=== PATIENT | male | born 1955 | race Caucasian/White ===

== ENCOUNTER 2016-09-21 06:33 | Emergency (ER) | payer OTHER ==
[~2016-09-21] VITALS: Ht 172.7 cm; Wt 104.5 kg
[2016-09-21 06:36] VITALS: BP 155/94; PULSE 64; RESP 16; O2SAT 99
[2016-09-21] MEDS ORDERED: 0.9% Sodium Chloride 1,000 ML IV ONE (06:42)
--- NOTE | 2016-09-21 06:44 | ED.REPORT ---
HPI-Back Pain 40 and Over Date of Service September 21, 2016 ED Provider: Hugo David MD The patient is a 61 year old male who presents to the ED due to severe back pain onset this morning. He woke up this morning with some diarrhea. Later on, he went to work and began to develop severe back pain, nausea and diaphoresis. He denies dysuria and vomiting. When he sits up straight the pain is the worst. Nursing Notes Stated Complaint: BACK PAIN Chief Complaint: Back Pain or Injury Nursing Notes Reviewed: Yes Allergies: Coded Allergies: No Known Allergies (Unverified , 09/21/16) Scheduled Tamsulosin (Flomax) 0.4 Mg Capsule 0.4 MG PO DAILY Scheduled PRN Hydrocodone-Acetaminophen 5-325 mg (Hydrocodone-Acetaminophen 5-325 mg) 1 Each Tablet 1 TABLET PO Q4H PRN PRN For Pain General Time Seen by MD: 06:42 Chief Complaint Back pain Hx Obtained From: Patient Arrived By: Walk-in Sudden in Onset?: Yes Onset Occurred: 1 - 4 hours ago Symptom Duration: Since onset Caused by: Spontaneous/no mechanism Location: : Flank bilateral Quality: Painful Radiation: : Does not radiate Severity: Current: Mild Severity: Maximum: Moderate Recent Healthcare: No recent doctor visit, No recent hospitalization Similar Sx Previous: No Past Medical History Past Medical History denies Past Surgical History denies Smoking History Unknown if Ever Smoker Social History Other Social History: Local resident Ambulatory Status Independent Review of Systems Cardiovascular: Denies: Chest pain GI: Reports: Diarrhea, Nausea, Denies: Vomiting Male: Reports Flank pain, Denies Dysuria Musculoskeletal: Reports: Back pain Complete sys rev & neg: except as marked. Skin: Reports Diaphoresis Physical Exam Initial Vital Signs Vital Signs (First) Date Time Temp Pulse Resp B/P Pulse Ox O2 Delivery O2 Flow Rate FiO2 09/21/16 06:36 36.1 64 16 155/94 99 Room Air Initial VS: Reviewed Head / Eyes: Atraumatic, Normocephalic, PERRL ENT: Mucous membranes moist Extremities: Vascular intact, Neuro intact, No swelling Skin: Warm, Dry General/Constitutional: Awake, Alert, Cooperative, Not toxic appearing Respiratory / Chest: Atraumatic, Breath sounds NL, Breath sounds = bilat, No respiratory distress Cardiovascular: Heart rate NL, Regular rhythm, Heart sounds NL Abdomen: Atraumatic, Soft, Non-tender Flank / Spine / Paraspinal: Positive: Flank tender L Neurologic: Oriented X3, Speech NL, No motor deficits Interpretation & Diagnostics Interpretation & Diagnostics: CT KUB IMPRESSION: 1. 1 mm stone in the distal left ureter causing minimal to mild left-sided hydronephrosis. 2. 2 mm nonobstructing right renal stone. 3. Bilateral inguinal hernias. Dictated by: Soraya Aguirre MD, PhD on 09/21/2016 at 7:53 Approved by: Soraya Aguirre MD, PhD on 09/21/2016 at 7:59 Lab Results Interpretation Result Diagram: 09/21/16 0710 09/21/16 0710 Test 09/21/16 07:02 09/21/16 07:10 Urine Color Yellow (YELLOW) Urine Appearance Clear (CLEAR,HAZY) Urine pH 5.0 (5.0-8.0) Urine Specific Leroy 1.025 (1.003-1.035) Urine Protein Negativemg/dL (NEG,TRACE) Urine Glucose (UA) Negativemg/dL (NEGATIVE) Urine Ketones Negativemg/dL (NEGATIVE) Urine Occult Blood Small (NEGATIVE) Urine Nitrite Negative (NEGATIVE) Urine Bilirubin Negative (NEGATIVE) Urine Urobilinogen Normalmg/dL (NORMAL) Urine Leukocyte Esterase Negative (NEGATIVE) Urine RBC 3-10/hpf (0-2) Urine WBC 0-5/hpf (0-5) Urine Epithelial Cells Few/hpf (NONE-MOD) Urine Crystals None seen (NONE SEEN) Urine Bacteria Few/hpf (NONE-FEW) Urine Hyaline Casts None/lpf (NONE) Urine Granular Casts None seen (NONE SEEN) Urine Waxy Casts None seen (NONE SEEN) Urine Red Blood Cell Casts None seen (NONE SEEN) Urine White Blood Cell Casts None seen (NONE SEEN) Urine Mucus Present (None Seen) Urine Trichomonas None seen (NONE SEEN) Urine Yeast None (NONE SEEN) Urinalysis Comment None Urine Culture Reflexed Not indicated White Blood Count 6.8th/mm3 (3.8-10.1) Red Blood Count 5.75mil/mm3 (4.40-5.80) Hemoglobin 16.1g/dL (13.8-17.2) Hematocrit 45.7% (41.0-50.0) Mean Corpuscular Volume 79.5fL (81-100) Mean Corpuscular Hemoglobin 28.0pg (27.0-35.0) Mean Corpuscular Hemoglobin Concent 35.2% (32.0-37.0) Red Cell Distribution Width 14.6% (12.3-15.4) Platelet Count 231bil/L (150-400) Neutrophils (%) (Auto) 46.3% (40-74) Lymphocytes (%) (Auto) 36.9% (14-46) Monocytes (%) (Auto) 12.3% (4-12) Eosinophils (%) (Auto) 3.5% (0-5) Basophils (%) (Auto) 0.7% (0-3) Sodium Level 137mEq/L (134-144) Potassium Level 4.3mEq/L (3.5-5.2) Chloride Level 98mEq/L (97-108) Carbon Dioxide Level 26mmol/L (18-29) Blood Urea Nitrogen 16mg/dL (8-27) Creatinine 1.19mg/dL (0.76-1.27) Estimat Glomerular Filtration Rate 66mL/min (>59) Glucose Level 164mg/dL (60-99) Calcium Level 9.3mg/dL (8.5-10.1) Magnesium Level 2.1mg/dL (1.6-2.6) Total Bilirubin 0.7mg/dL (0.0-1.2) Aspartate Amino Transf (AST/SGOT) 28U/L (0-50) Alanine Aminotransferase (ALT/SGPT) 40U/L (0-44) Alkaline Phosphatase 86U/L (25-160) Total Protein 7.6g/dL (6.4-8.4) Albumin 4.2g/dL (3.4-5.0) Lipase 42U/L (13-60) Lab Results Interpretation: Urine shows blood but no leukocytes Re-Eval/Medical Decision Med Decision/Clinical Course 61-year-old male presenting with left flank pain. CT with 1 mm kidney stone minimal hydronephrosis. Pain controlled. No evidence of infection on urine. Patient was discharged on with plans to strain his urine, Flomax, follow-up with primary doctor in urology. Return precautions given her worsening pain, fevers, vomiting, abdominal pain, any other worsening symptoms. Re-Evaluation/Progress : Time of Eval: 08:27 Re-Evaluation/Progress Note: Pt rechecked. Informed of diagnosis of kidney stone. It is 1mm and should pass on its own. Discussed plan of treatment. Pt understands and agrees with plan. F/U and RTER warnings given. All questions addressed. Counseled Regarding: Diagnosis, Lab results, Need for follow-up, When/why to return to ED Discharge & Departure Impression: Primary Impression: Kidney stones Disposition: Home Discharge Condition All VS Reviewed: Yes Condition: Stable Patient Instructions: Kidney Stones (ED) Additional Instructions: You have a kidney stone, but there are no signs of infection. I am sending you home with a prescription for Flomax, take as directed. Strain your urine. Follow up with your primary care physician as needed. Here is the number for a urologist for further evaluation: Dr. Soraya Brown [phone] Return to the Emergency Department for any new or worsening symptoms including back pain, nausea, and vomiting. I hope you feel better soon! Referrals: [facility] Lamine Attestation Portion of this note were transcribed by Lizette Kam. I, Dr. David, personally performed the history, physical exam, and medical decision-making: I reviewed and confirmed the accuracy for the information in the transcribed note. Signed by: lamine Rivera, 09/21/16 0800 copies to: [facility] Hugo David MD September 21, 2016 06:44 Lizette Kam September 21, 2016 06:52
[2016-09-21] MEDS ORDERED: Ondansetron 2 mg/mL 2 mL Inj IVPUSH PRN (06:45)
[2016-09-21 07:22] LABS: BASOPHILS % (AUTO) 0.7 % (0-3); EOSINOPHILS % (AUTO) 3.5 % (0-5); MONOCYTES % (AUTO) 12.3 % (4-12); Mean Corpuscular Volume 79.5 fL (81-100); NEUTROPHILS % (AUTO) 46.3 % (40-74); Platelet Count 231 bil/L (150-400)
[2016-09-21 07:40] LABS: APPEARANCE,URINE CLEAR (CLEAR,HAZY); COLOR,URINE YELLOW (YELLOW); OCCULT BLOOD,URINE SMALL (NEGATIVE); UROBILINOGEN,URINE NORMAL (NORMAL)
[2016-09-21 07:41] VITALS: BP 135/87; PULSE 60; RESP 20; O2SAT 97
[2016-09-21] MEDS ORDERED: TAMS0.4C98 PO (07:54)
[2016-09-21 07:56] LABS: Magnesium 2.1 mg/dL (1.6-2.6)
--- NOTE | 2016-09-21 08:01 | DRSVH ---
PROCEDURE: CT KUB ([id number]) INDICATIONS: L flank pain hematuria TECHNIQUE: Noncontrast 5 mm thick sections acquired from the diaphragms to the symphysis. 5 mm thick coronal an d sagittal reformats were then performed. For radiation dose reduction, the following was used: aut omated exposure control, adjustment of mA and/or kV according to patient size. COMPARISON: None. FINDINGS: Image quality: Excellent. Lung bases: Lung bases are clear of acute opacities. 2 mm calcified granuloma noted in the right gerardo g base. 2 mm subpleural nodule noted in the posterior aspect of the right lung base (series 4, image 9).. Heart size is normal. Urinary system: Both kidneys are normal in size. 2 mm nonobstructing stone is noted in the superior pole of the right kidney. 1 mm stone noted in the distal left ureter which is causing minimal to mild left-sided hydronephrosis. Bladder wall thickness is normal; no calcified bladder stones. Other solid organs: Liver and spleen are normal in size. Gallbladder is within normal limits. Panc reas is normal in contours. No adrenal nodules. Peritoneum and bowel: Unenhanced bowel loops demonstrate normal wall thickness and caliber. No free fluid or air. Nodes and vessels: No retroperitoneal or mesenteric adenopathy by size criteria. Aorta and inferior vena cava are normal in caliber. Scattered atherosclerotic ossifications are noted in the abdominal pelvic vasculature. Abdominal wall: No ventral hernias. Atrophy of the lower right rectus abdominis musculature is noted . Pelvis: No free pelvic fluid. No adenopathy. Fat containing bilateral inguinal hernias are noted. Bones: No suspicious bony lesions. No vertebral body compression fractures. Spine degenerative [place] ges noted. IMPRESSION: 1. 1 mm stone in the distal left ureter causing minimal to mild left-sided hydronephrosis. 2. 2 mm nonobstructing right renal stone. 3. Bilateral inguinal hernias. Dictated by: Soraya Aguirre MD, PhD on 09/21/2016 at 7:53 Approved by: Soraya Aguirre MD, PhD on 09/21/2016 at 7:59
[2016-09-21] MEDS ORDERED: HYDR-4003 PO (08:24)
[2016-09-21 08:44] VITALS: BP 151/83; RESP 18; O2SAT 98
== END 2016-09-21 08:46 | disposition home or self-care (01) ==
LOC: SED 06:33
DX: N20.0 Calculus of kidney (principal); R19.7 Diarrhea, unspecified
CPT/HCPCS: 36415; 74176; 80053; 81000; 83690; 83735; 85025; 96361; 96374; 96375; 96376; 99285; J1885; J2270; J2405; J7030